=== PATIENT | female | born 1980 | race Hispanic/Latino ===

== ENCOUNTER 2017-10-25 11:39 | Emergency (ER) | payer MEDICAID | END 2017-10-25 12:06 | disposition home or self-care (01) | LOC: EDH 11:39 | DX: S60.041A Contusion of right ring finger without damage to nail, initial encounter (principal); S60.051A Contusion of right little finger without damage to nail, initial encounter; J45.909 Unspecified asthma, uncomplicated; W01.0XXA Fall on same level from slipping, tripping and stumbling without subsequent striking against object, initial encounter; Y93.E2 Activity, laundry; Y92.89 Other specified places as the place of occurrence of the external cause; Y99.8 Other external cause status | CPT/HCPCS: 99281 ==

== ENCOUNTER 2019-01-19 03:06 | Emergency (ER) | payer MEDICAID ==
[2019-01-19 03:26] LABS: APPEARANCE,URINE Clear (CLEAR); BILIRUBIN,URINE Negative (NEGATIVE); COLOR,URINE Yellow (YELLOW); GLUCOSE, URINE (UA) Negative (NEGATIVE); KETONES,URINE Negative (NEGATIVE); LEUKOCYTE ESTERASE ,URINE Trace (NEGATIVE); NITRATE,URINE Negative (NEGATIVE); OCCULT BLOOD,URINE Negative (NEGATIVE); PH,URINE 8.5 (5.0-8.0); PROTEIN,URINE Negative (NEGATIVE)
[2019-01-19 03:28] LABS: HCG,QUAL RESULT NEGATIVE (NEGATIVE)
[2019-01-19] MEDS ORDERED: ACETAMINOPHEN EXTRA STRENGTH 500 MG TABLET ONE (03:37)
[2019-01-19 03:38] LABS: BACTERIA,URINE None Seen /HPF (None Seen); RBC,URINE 0-1 /HPF (0-1)
[2019-01-19] MEDS ORDERED: IBUPROFEN 600 MG TABLET ONE (03:54)
[2019-01-19 04:01] LABS: BASOPHILS % (AUTO) 0.7 % (0.0-5.0); EOSINOPHILS % (AUTO) 1.1 % (0.0-8.0); HEMATOCRIT 28.8 % (36-48); MEAN CORPUSCULAR HEMOGLOBIN 22.9 pg (27.0-33.0); MEAN CORPUSCULAR HGB CONC 32.2 g/dL (32.0-36.0); MEAN CORPUSCULAR VOLUME 70.9 fL (79-99); MONOCYTES % (AUTO) 6.9 % (3.0-13.0); NEUTROPHILS % (AUTO) 83.3 % (40.0-77.0); NUCLEATED RED BLOOD CELLS 0.1 % (0.0-0.19); PLATELET COUNT (AUTO) 343 K/uL (130-400); RED BLOOD CELL COUNT(AUTO) 4.06 MIL/uL (4.00-5.50); RED CELL DISTRIBUTION WIDTH 16.4 % (11.0-15.5); WHITE BLOOD COUNT (AUTO) 9.8 K/uL (4.8-10.8)
[2019-01-19 04:03] LABS: RAPID GROUP A STREP NEGATIVE (NEGATIVE)
[2019-01-19 04:08] LABS: CREATININE 0.9 mg/dL (0.5-1.5); POTASSIUM 3.7 mmol/L (3.5-5.1)
[2019-01-19 04:13] LABS: ALBUMIN 3.6 g/dL (3.5-5.0); BILIRUBIN,TOTAL 0.4 mg/dL (0.2-1.0)
[2019-01-19] MEDS ORDERED: OSELTAMIVIR PHOSPHATE 75 MG CAP ONE (06:38)
== END 2019-01-19 07:45 | disposition home or self-care (01) ==
LOC: EDH 03:06
DX: J11.1 Influenza due to unidentified influenza virus with other respiratory manifestations (principal); E86.0 Dehydration; R51 Headache; H92.09 Otalgia, unspecified ear
CPT/HCPCS: 36415; 80053; 81001; 81025; 83605; 85025; 87040; 87804; 87880; 96360; 96361